=== PATIENT | male | born 1965 | race Caucasian/White ===

== ENCOUNTER 2017-02-03 17:10 | Emergency (ER) | payer OTHER ==
[~2017-02-03] VITALS: Ht 180.3 cm; Wt 109.7 kg
[~2017-02-03 17:10] MED LIST: CLINDAMYCIN HC300 MG PO; CLONIDINE HCL0.3 MG PO; COLCRYS0.6 MG PO; DIOVAN320 MG PO; PERCOCET 5/31 TABLET PO; PREDNISONE20 MG PO; VENTOLIN HFA18 GM IH
[2017-02-03 18:02] LABS: BASOPHIL COUNT 0.1 K/uL (0-0.1); EOSINOPHIL (%) 1.2 % (0-5); EOSINOPHIL COUNT 0.1 K/uL (0-0.3); IMMATURE GRANULOCYTE (%) 0.8 % (0.0-0.7); IMMATURE GRANULOCYTE COUNT 0.1 K/uL; INSTRUMENT ABS NEUTROPHIL CT 7.5 K/uL; LYMPHOCYTE COUNT 2.5 K/uL (1.0-2.8); MCH 30.1 PG (29.0-34.0); MCHC 34.1 G/DL (30.0-36.0); MCV 88.3 FL (86-99); MONOCYTE (%) 9.4 % (3-12); MONOCYTE COUNT 1.1 K/uL (0-0.8); NEUTROPHIL (%) 65.9 % (45-76); NEUTROPHIL COUNT 7.5 K/uL (1.8-6.4); PLATELET COUNT 279 K/uL (156-360); RBC DIS.WIDTH-CV 12.7 % (11.8-14.6); RBC DIS.WIDTH-SD 41.5 % (39-53); RED BLOOD COUNT 5.55 M/uL (4.00-5.50); WHITE BLOOD COUNT 11.4 K/uL (4.1-10.2)
[2017-02-03 18:09] LABS: CHLORIDE 109 mEq/L (99-109); POTASSIUM 4.3 mEq/L (3.7-5.4); SODIUM 138 mEq/L (136-147)
[2017-02-03 18:11] LABS: GLUCOSE 92 mg/dL (70-99)
[2017-02-03 18:12] LABS: ANION GAP 13 MEQ/L (2-14)
[2017-02-03 18:13] LABS: TOTAL BILIRUBIN 0.3 mg/dL (0.0-1.0)
[2017-02-03 18:14] LABS: ALKALINE PHOSPHATASE 64 IU/L (3-129)
[2017-02-03 18:15] LABS: GFR ESTIMATE (CALCULATED) > 59 mL/min/
[2017-02-03 18:16] LABS: UREA NITROGEN (BUN) 26 mg/dL (9-23)
[2017-02-03 18:18] LABS: LIPASE 67 U/L (1.0-51.0)
[2017-02-03 18:25] LABS: ADD MIUA? YES; BILIRUBIN NEGATIVE; BLOOD SMALL; COLOR YELLOW ((YELLOW)); GLUCOSE (STRIP) NEGATIVE; KETONES NEGATIVE; LEUKOCYTES NEGATIVE; NITRITE NEGATIVE; PROTEIN (STRIP) >=500; SPECIFIC GRAVITY 1.014 (1.000-1.030); UROBILINOGEN 0.2 MG/DL (0.2-1.0)
[2017-02-03 18:28] LABS: BACTERIA RARE /HPF; EPITHELIAL CELLS RARE /HPF; MUCUS TRACE /LPF; RED BLOOD CELLS 0-5 /HPF (0-5); WHITE BLOOD CELLS 0-5 /HPF (0-5)
[2017-02-03] MEDS ORDERED: ZOFRAN ODT4 MG PO (20:57)
[2017-02-03] MEDS ORDERED: BENTYL20 MG PO (20:57)
[2017-02-03 21:29] VITALS: BP 158/98
== END 2017-02-03 21:31 | disposition home or self-care (01) ==
LOC: EME 17:10
PROVIDERS: Physician Assistant
DX: R10.12 Left upper quadrant pain (principal); R11.2 Nausea with vomiting, unspecified; R19.7 Diarrhea, unspecified; E86.0 Dehydration; R94.31 Abnormal electrocardiogram [ECG] [EKG]; I10 Essential (primary) hypertension; F17.200 Nicotine dependence, unspecified, uncomplicated
CPT/HCPCS: 74177; 80053; 81003; 83605; 83690; 85025; 93005; 99281; 99285; J2405; J7030